=== PATIENT | female | born 1985 | race Hispanic/Latino ===

== ENCOUNTER 2017-10-03 14:19 | Observation (INO) | payer BC, MEDICAID ==
[~2017-10-03] VITALS: Ht 175.3 cm; Wt 117.0 kg
== END 2017-10-03 15:30 | disposition home or self-care (01) ==
LOC: EDH 14:19 → LDH 14:20
PROVIDERS: ADMIT Obstetrics & Gynecology; ATTEND Obstetrics & Gynecology
DX: O42.913 Preterm premature rupture of membranes, unspecified as to length of time between rupture and onset of labor, third trimester (principal); Z3A.35 35 weeks gestation of pregnancy
CPT/HCPCS: 82120; 99285; G0378